=== PATIENT | female | born 1940 | race Caucasian/White ===

== ENCOUNTER → 2017-05-25 | Outpatient (CLI) | payer MEDICARE ==
[~2017-05-25] MED LIST: ALEN70 PO; ATOR40TA PO; AUGM875T PO; HYDR200T42 PO; LEVO137T2 PO; LISI-357 PO; METO25 PO
--- NOTE | 2017-06-03 09:03 | RSPPFT ---
DATE OF PROCEDURE: 05/25/17 COMMENTS: Spirometry shows FVC of 2.0 at 94% of predicted, FEV1 of 1.5 at 92%, FEV1/FVC ratio is normal. Flow is normal at FEF 25, FEF 50, FEF 75 and FEF 25-75. There is a paradoxical response to bronchodilator treatment. Lung volumes show residual volume is normal. TLC is normal. Diffusion capacity is normal. Flow volume loop indicates a normal pattern. 6-minute walk test shows no de-saturation. IMPRESSION: 1. Normal spirometry. 2. Paradoxical response to bronchodilator treatment. 3. Normal lung volumes. 4. Normal diffusion capacity. 5. 6-minute walk test shows no de-saturation.
== END ==
LOC: PHRSP 09:26
PROVIDERS: ATTEND Specialist
DX: J44.9 Chronic obstructive pulmonary disease, unspecified (principal); R06.00 Dyspnea, unspecified; R09.02 Hypoxemia
CPT/HCPCS: 94060; 94618; 94726; 94729